=== PATIENT | female | born 1995 ===

== ENCOUNTER 2017-09-27 19:55 | Emergency (ER) | payer OTHER ==
[2017-09-27 20:35] VITALS: BMI 28.8
--- NOTE | 2017-09-27 20:42 | ED PDOC ---
HPI: General Adult Time Seen by Provider: 09/27/17 20:31 Chief Complaint (Provider): Left low back pain radiating down the left leg History Per: Patient History/Exam Limitations: no limitations Onset/Duration Of Symptoms: Days Have you had recent travel within the past 21 days to any of the following countries: [place], [place], [place] or [place]?: No Additional Complaint(s): 22 yo female presents with left lower back pain radiating down the left leg. PT states she took a test which was positive. LMP 08/23. Pt . No pelvic pain, no vaginal bleeding. PT states she did not know what to take for back pain. 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 less than 2 weeks Past Medical History Reviewed: Historical Data, Nursing Documentation, Vital Signs - Medical History PMH: No Chronic Diseases - Surgical History Surgical History: No Surg Hx - Family History Family History: States: Unknown Family Hx - Immunization History Hx Tetanus Toxoid Vaccination: No Hx Influenza Vaccination: No Hx Pneumococcal Vaccination: No - Home Medications Home Medications: Ambulatory Orders Medication Instructions Recorded Vit No.130/Iron/Folic 1 each PO DAILY #30 tablet 10/10/15 [ Vitamins] - Allergies Allergies/Adverse Reactions: Allergies Allergy/AdvReac Type Severity Reaction Status Date / Time No Known Allergies Allergy Verified 12/17/15 22:28 Review of Systems ROS Statement: Except As Marked, All Systems Reviewed And Found Negative Constitutional: Negative for: Fever, Chills Genitourinary Female: Negative for: Hematuria, Vaginal Discharge, Vaginal Bleeding, Pelvic Pain Musculoskeletal: Positive for: Back Pain Physical Exam - Reviewed Nursing Documentation Reviewed: Yes Vital Signs Reviewed: Yes - Physical Exam Appears: Positive for: Well, Non-toxic, No Acute Distress Head Exam: Positive for: ATRAUMATIC, NORMAL INSPECTION, NORMOCEPHALIC Skin: Positive for: Normal Color, Warm, DRY Eye Exam: Positive for: Normal appearance ENT: Positive for: Normal ENT Inspection Neck: Positive for: Normal, Painless ROM Cardiovascular/Chest: Positive for: Regular Rate, Rhythm Respiratory: Positive for: CNT, Normal Breath Sounds Gastrointestinal/Abdominal: Positive for: Normal Exam, Bowel Sounds, Soft. Negative for: Tenderness Back: Positive for: Normal Inspection, Other ((+) left leg raise ). Negative for: Muscle Spasm Extremity: Positive for: Normal ROM Neurologic/Psych: Positive for: Alert, Oriented Disposition - Clinical Impression Clinical Impression: Sciatica - Patient ED Disposition Is Patient to be Admitted: No - Disposition Disposition: Routine/Home Disposition Time: 20:44 Condition: STABLE Additional Instructions: Please start vitamins. Tylenol maybe taken for back pain. Instructions: Sciatica (DC)
[2017-09-27 20:48] VITALS: BP 109/66; PULSE 89; RESP 15; TEMP 97; O2SAT 100
== END 2017-09-27 21:40 | disposition home or self-care (01) ==
LOC: H.ER 19:55
DX: M54.30 Sciatica, unspecified side (principal)

== ENCOUNTER 2017-10-25 10:43 | Emergency (ER) | payer SELFPAY ==
[2017-10-25 11:05] VITALS: TEMP 97; O2SAT 99
[2017-10-25 11:06] VITALS: BMI 33.9
--- NOTE | 2017-10-25 12:20 | ED PDOC ---
HPI: Abdomen Time Seen by Provider: 10/25/17 10:50 History Per: Patient History/Exam Limitations: no limitations Additional Complaint(s): Moe is a 22 year old female (G3-P2) who is 6-8 weeks who presents to the ED complaining of lower abdominal pain and lower back pain. No urinary symptoms, fever, or bleeding. PMD: Provider TBD Past Medical History Reviewed: Historical Data, Nursing Documentation, Vital Signs Vital Signs: Last Vital Signs Temp 97 F L 10/25/17 12:40 Pulse 78 10/25/17 16:44 Resp 18 10/25/17 16:44 BP 108/66 10/25/17 16:44 Pulse Ox 99 10/25/17 16:44 - Medical History PMH: No Chronic Diseases - Surgical History Surgical History: - Family History Family History: States: Unknown Family Hx - Social History Current smoker - smoking cessation education provided: No Alcohol: None Drugs: Denies - Immunization History Hx Tetanus Toxoid Vaccination: No Hx Influenza Vaccination: No Hx Pneumococcal Vaccination: No - Home Medications Home Medications: Ambulatory Orders Medication Instructions Recorded Vit No.130/Iron/Folic 1 each PO DAILY #30 tablet 10/10/15 [ Vitamins] Nitrofurantoin Macrocrystals 100 mg PO BID #14 cap 10/25/17 [Macrobid] - Allergies Allergies/Adverse Reactions: Allergies Allergy/AdvReac Type Severity Reaction Status Date / Time No Known Allergies Allergy Verified 12/17/15 22:28 Review of Systems ROS Statement: Except As Marked, All Systems Reviewed And Found Negative Gastrointestinal: Positive for: Abdominal Pain (Lower) Musculoskeletal: Positive for: Back Pain (Lower) Physical Exam - Reviewed Nursing Documentation Reviewed: Yes Vital Signs Reviewed: Yes - Physical Exam Appears: Positive for: Well, Non-toxic Head Exam: Positive for: ATRAUMATIC, NORMAL INSPECTION, NORMOCEPHALIC Skin: Positive for: Normal Color, Warm, Dry Eye Exam: Positive for: Normal appearance, EOMI ENT: Positive for: Normal ENT Inspection Neck: Positive for: Normal Cardiovascular/Chest: Positive for: Regular Rate, Rhythm Respiratory: Positive for: Normal Breath Sounds. Negative for: Respiratory Distress Gastrointestinal/Abdominal: Positive for: Normal Exam Extremity: Positive for: Normal ROM. Negative for: Deformity Neurologic/Psych: Positive for: Alert, Oriented (x 3) - Laboratory Results Result Diagrams: 10/25/17 13:10 10/25/17 13:10 - ECG O2 Sat by Pulse Oximetry: 99 (RA) Pulse Ox Interpretation: Normal Medical Decision Making Medical Decision Making: Time: 12:08 Plan: - Beta hCG, Quantitative - CMP - CBC - OB 1st Tri and Ob Transvaginal Ultrasound US shows 12 wk 6 days fetus pt informed of results instructed to follow up w outpt housekeeping/laundry in 1-2 days tkae vitamins as well Scribe Attestation: Documented by Henry Palafox, acting as a scribe for Sandor Miranda MD Provider Scribe Attestation: All medical record entries made by the Scribe were at my direction and personally dictated by me. I have reviewed the chart and agree that the record accurately reflects my personal performance of the history, physical exam, medical decision making, and the department course for this patient. I have also personally directed, reviewed, and agree with the discharge instructions and disposition. 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
[2017-10-25 12:43] VITALS: RESP 18
[2017-10-25 13:24] LABS: BASO % 0.3 % (0.0-2.0); EOS # 0.1 K/uL (0.0-0.7); EOS % 0.9 % (0.0-4.0); HEMOGLOBIN 13.4 g/dL (12.0-16.0); LYMPH # 1.7 K/uL (1.0-4.3); LYMPH % 21.2 % (20.0-40.0); MEAN CELL VOLUME 87.3 fl (81.0-99.0); MEAN CORPUSCULAR HEMOGLOBIN 30.9 pg (27.0-31.0); MEAN CORPUSCULAR HGB CONC 35.3 g/dL (33.0-37.0); MEAN PLATELET VOLUME 8.1 fl (7.2-11.7); MONO # 0.5 K/uL (0.0-0.8); NEUT # 5.6 K/uL (1.8-7.0); NEUT % 71.6 % (50.0-75.0); RBC 4.33 Mil/uL (3.80-5.20); RED CELL DISTRIBUTION WIDTH 12.9 % (11.5-14.5); WHITE BLOOD COUNT 7.8 K/uL (4.8-10.8)
[2017-10-25 14:07] LABS: ALB/GLOB RATIO 1.1 (1.0-2.1); ALBUMIN 3.9 g/dL (3.5-5.0); ALT/SGPT 29 U/L (9-52); AST/SGOT 18 U/L (14-36); BLOOD UREA NITROGEN 7 mg/dl (7-17); CALCIUM 9.5 mg/dL (8.4-10.2); GFR AFRICAN-AMERICAN > 60; GFR NON-AFRICAN AMERICAN > 60
--- NOTE | 2017-10-25 15:06 | US ---
PROCEDURE: OB Pelvic Ultrasound HISTORY: pelvic pain LMP: 08/28/2017 COMPARISON: No relevant imaging. FINDINGS: UTERUS: Gestational sac: Single intrauterine gestation. Measures 6.8 cm. Yolk sac: Not visualized. pole: [place]-rump length measures 6.4 cm compatible with estimated gestational age of 12 weeks, 6 days Heart rate: 139 bpm. age (Ultrasound estimated): 12 weeks, 6 days Marisel-gestational hemorrhage: None. Date of delivery (Ultrasound estimated) : 05/03/2018 Uterus measures 12.9 x 9.6 x 10.6 cm. Anteverted. CERVIX: Measures 5.5 cm. Long and closed. No cervical abnormality seen. RIGHT OVARY: Measures 2.6 x 2.1 x 2.9 cm. No mass lesion. Normal flow. LEFT OVARY: Measures 2.7 x 1.5 x 1.6 cm. No solid mass. Normal flow. FREE FLUID: None. OTHER FINDINGS: None. IMPRESSION: Single intrauterine gestation with average ultrasound age of 12 weeks, 6 days. heart rate 139 beats per minute. Cervix long and closed.
[2017-10-25 16:16] LABS: SQUAMOUS EPITHIAL 9 /hpf (0-5); URINE BACTERIA OCC (<OCC); URINE BILIRUBIN NEGATIVE (NEGATIVE); URINE BLOOD NEGATIVE (NEGATIVE); URINE CLARITY CLOUDY (Clear); URINE COLOR YELLOW (YELLOW); URINE GLUCOSE (UA) NEG (Normal); URINE LEUKOCYTE ESTERASE MOD Leu/uL (Negative); URINE PROTEIN 30 mg/dL (NEGATIVE); URINE UROBILINOGEN 0.2-1.0 mg/dL (0.2-1.0)
[2017-10-25 16:46] VITALS: BP 108/66; PULSE 78
== END 2017-10-25 16:30 | disposition home or self-care (01) ==
LOC: H.ER 10:43
DX: Z34.91 Encounter for supervision of normal pregnancy, unspecified, first trimester (principal)

== ENCOUNTER 2017-11-13 18:04 | Emergency (ER) | payer SELFPAY ==
[2017-11-13 18:04] VITALS: BMI 33.9
[2017-11-13 18:15] VITALS: BP 98/67; PULSE 80; RESP 16; TEMP 98.5; O2SAT 100
[2017-11-13] MEDS ORDERED: Sodium Chloride 0.9% 1,000 ML IV STA (19:01)
--- NOTE | 2017-11-13 19:03 | ED PDOC ---
HPI: Abdomen Time Seen by Provider: 11/13/17 19:01 Chief Complaint (Nursing): Abdominal Pain Chief Complaint (Provider): ABDOMINAL PAIN History Per: Patient (22 Y/O FEMALE APPROX 15 WEEKS GESTATION HERE WITH COMPLAINT OF LOWER ABDOMINAL PAIN. DENIES ANY VAGINAL BLEEDING. DENIES ANY DYSURIA/URINARY FREQUENCY/FEVERS/CHILLS.) Past Medical History Reviewed: Historical Data, Nursing Documentation, Vital Signs Vital Signs: Last Vital Signs Temp 98.5 F 11/13/17 18:12 Pulse 80 11/13/17 18:12 Resp 16 11/13/17 18:12 BP 98/67 L 11/13/17 18:12 Pulse Ox 100 11/13/17 19:04 - Surgical History Surgical History: - Family History Family History: States: Unknown Family Hx - Immunization History Hx Tetanus Toxoid Vaccination: No Hx Influenza Vaccination: No Hx Pneumococcal Vaccination: No - Home Medications Home Medications: Ambulatory Orders Medication Instructions Recorded Vit No.130/Iron/Folic 1 each PO DAILY #30 tablet 10/10/15 [ Vitamins] Nitrofurantoin Macrocrystals 100 mg PO BID #14 cap 10/25/17 [Macrobid] - Allergies Allergies/Adverse Reactions: Allergies Allergy/AdvReac Type Severity Reaction Status Date / Time No Known Allergies Allergy Verified 12/17/15 22:28 Review of Systems ROS Statement: Except As Marked, All Systems Reviewed And Found Negative Gastrointestinal: Positive for: Abdominal Pain Physical Exam - Reviewed Nursing Documentation Reviewed: Yes Vital Signs Reviewed: Yes - Physical Exam Appears: Positive for: Well, Non-toxic, No Acute Distress Head Exam: Positive for: ATRAUMATIC, NORMAL INSPECTION, NORMOCEPHALIC Skin: Positive for: Normal Color, Warm, DRY Eye Exam: Positive for: EOMI, Normal appearance, PERRL ENT: Positive for: Normal ENT Inspection Neck: Positive for: Normal, Painless ROM Cardiovascular/Chest: Positive for: Regular Rate, Rhythm Respiratory: Positive for: CNT, Normal Breath Sounds Gastrointestinal/Abdominal: Positive for: Normal Exam, Soft, Other (GRAVID UTERUS) Back: Positive for: Normal Inspection Extremity: Positive for: Normal ROM Neurologic/Psych: Positive for: Alert, Oriented - Laboratory Results Result Diagrams: 11/13/17 19:15 11/13/17 19:15 - ECG O2 Sat by Pulse Oximetry: 100 Disposition - Clinical Impression Clinical Impression: Abdominal pain during - Patient ED Disposition Is Patient to be Admitted: Transfer of Care - Disposition Disposition: Transfer of Care Disposition Time: 20:00 Condition: FAIR Forms: [employer] (Tamazight) Patient Signed Over To: Bro Jimenez Handoff Comments: PENDING US PELVIC/LABWORK/UA
[2017-11-13 19:28] LABS: BASO % 0.6 % (0.0-2.0); EOS # 0.1 K/uL (0.0-0.7); EOS % 1.5 % (0.0-4.0); HEMOGLOBIN 12.8 g/dL (12.0-16.0); LYMPH # 1.7 K/uL (1.0-4.3); LYMPH % 21.3 % (20.0-40.0); MEAN CELL VOLUME 87.8 fl (81.0-99.0); MEAN CORPUSCULAR HEMOGLOBIN 30.7 pg (27.0-31.0); MEAN CORPUSCULAR HGB CONC 34.9 g/dL (33.0-37.0); MONO # 0.5 K/uL (0.0-0.8); MONO % 6.6 % (0.0-10.0); NEUT # 5.6 K/uL (1.8-7.0); NRBC % 0.1 % (0.0-0.0); RBC 4.19 Mil/uL (3.80-5.20); RED CELL DISTRIBUTION WIDTH 13.2 % (11.5-14.5)
[2017-11-13 19:36] LABS: SQUAMOUS EPITHIAL 5 /hpf (0-5); URINE BACTERIA RARE (<OCC); URINE BILIRUBIN NEGATIVE (NEGATIVE); URINE BLOOD NEGATIVE (NEGATIVE); URINE CLARITY CLOUDY (Clear); URINE COLOR YELLOW (YELLOW); URINE GLUCOSE (UA) NEG (Normal); URINE HYALINE CAST 0-2 /hpf (0-2); URINE LEUKOCYTE ESTERASE MOD Leu/uL (Negative); URINE PROTEIN NEGATIVE (NEGATIVE); URINE UROBILINOGEN 0.2-1.0 mg/dL (0.2-1.0)
[2017-11-13 19:41] LABS: BLOOD UREA NITROGEN 8 mg/dl (7-17); CALCIUM 9.7 mg/dL (8.4-10.2); GFR AFRICAN-AMERICAN > 60; GFR NON-AFRICAN AMERICAN > 60
--- NOTE | 2017-11-13 21:51 | ED PDOC ---
- Laboratory Results Result Diagrams: 11/13/17 19:15 11/13/17 19:15 Urine POC: Positive Urine dip results: Positive for: Blood. Negative for: Leukocyte Esterase, Nitrate, Ketones, Glucose, Bilirubin, Protein - ECG O2 Sat by Pulse Oximetry: 100 Medical Decision Making Medical Decision Making: U/S results consistent with a normal : cervix is closed, r and l adenexa without lesion; FHR (+) Pt will be discharged with instructions to follow up with OB in morning Disposition Doctor Will See Patient In The: Office Counseled Patient/Family Regarding: Diagnosis, Need For Followup - Clinical Impression Clinical Impression: Abdominal pain during , Abdominal discomfort, Pyelonephritis - POA Present On Arrival: None - Disposition Disposition: Routine/Home Disposition Time: 22:05 Condition: FAIR Additional Instructions: You should follow up with your OB in morning Instructions: How to Adapt to Physical Changes During , - The Third Month Forms: [employer] (Vietnamese)
--- NOTE | 2017-11-14 09:39 | US ---
PROCEDURE: OB Pelvic Ultrasound HISTORY: THREATENED MISCARRIAGE LMP: 08/20/2017. Prior obstetric ultrasound 10/25/2017 indicating single viable IUP with average ultrasound age 12 weeks 6 days. COMPARISON: Obstetric ultrasound 10/25/2017. FINDINGS: UTERUS: Gestational sac: A single viable intrauterine gestation identified with average pelvic age of 15 weeks 5 days which is concordant with prior ultrasonography from 10/25/2017 (including standard deviation). Heart rate: 143 bpm. Marisel-gestational hemorrhage: No placental abruption or previa with a posterior fundal placenta identified at this time. Date of delivery (Ultrasound estimated) : 05/02/2018. Uterus myometrium age grossly nonfocal. CERVIX: Measures 4.0 cm. Long and closed. No cervical abnormality seen. RIGHT OVARY: Not clearly identified in this examination with no interval suspicious right adnexal finding appreciated at this time. LEFT OVARY: Not clearly identified in this examination with no interval suspicious right adnexal finding appreciated at this time. FREE FLUID: None. OTHER FINDINGS: None. IMPRESSION: A single viable intrauterine gestation identified with average ultrasonic age of 15 weeks 5 days, concordant with prior ultrasonography 10/25/2016. No definite pattern of placental abruption or previa at this time. Neither ovary is identified however no suspicious adnexal findings are appreciated bilaterally grossly. Concordant preliminary report from [facility], 11/13/2017.
== END 2017-11-13 23:49 | disposition home or self-care (01) ==
LOC: H.ER 18:04
DX: O26.899 Other specified pregnancy related conditions, unspecified trimester (principal)

== ENCOUNTER 2018-02-10 23:38 | Inpatient (IN) | payer SELFPAY ==
[2018-02-11 01:29] VITALS: BMI 35.5
[2018-02-11] MEDS: Lactated Ringer's 1,000 ML IV SCH ×2 (01:30→02:50)
[2018-02-11 02:09] LABS: BASO % 0.4 % (0.0-2.0); EOS # 0.2 K/uL (0.0-0.7); EOS % 2.8 % (0.0-4.0); HEMOGLOBIN 12.1 g/dL (12.0-16.0); LYMPH # 2.2 K/uL (1.0-4.3); LYMPH % 29.6 % (20.0-40.0); MEAN CELL VOLUME 92.3 fl (81.0-99.0); MEAN CORPUSCULAR HEMOGLOBIN 31.3 pg (27.0-31.0); MEAN CORPUSCULAR HGB CONC 33.9 g/dL (33.0-37.0); MONO # 0.7 K/uL (0.0-0.8); MONO % 9.2 % (0.0-10.0); NEUT # 4.2 K/uL (1.8-7.0); NRBC % 0.1 % (0.0-0.0); RBC 3.87 Mil/uL (3.80-5.20); RED CELL DISTRIBUTION WIDTH 13.6 % (11.5-14.5); WHITE BLOOD COUNT 7.3 K/uL (4.8-10.8)
[2018-02-11 02:40] LABS: SQUAMOUS EPITHIAL 16 /hpf (0-5); URINE BACTERIA OCC (<OCC); URINE BILIRUBIN NEGATIVE (NEGATIVE); URINE BLOOD NEGATIVE (NEGATIVE); URINE CLARITY CLOUDY (Clear); URINE COLOR YELLOW (YELLOW); URINE GLUCOSE (UA) NEG (Normal); URINE HYALINE CAST 0-2 /hpf (0-2); URINE LEUKOCYTE ESTERASE LARGE Leu/uL (Negative); URINE PROTEIN NEGATIVE (NEGATIVE); URINE UROBILINOGEN 0.2-1.0 mg/dL (0.2-1.0)
[2018-02-11 03:27] LABS: SPECIMEN COMMENT Clear
--- NOTE | 2018-02-11 06:44 | OBHP ---
Datetime: 02/11/2018 01:58 IP Adm Impression: , intrauterine ; No Active Labor; Intact Membranes IP Admit Plan: Observation/Evaluation Admit Comment, IP Provider: Pt is a 22 y/o female with IUP 28.3 wks presenting to [facility] with com plaints of low back pain and dysuria. States that she has been having non radiating low back pain, 2/ 10, cramping x4 days. Reports 1 day of dysuria. Denies fever, chills, flank pain, vaginal discharge o r pruritis. Denies vb, lof. +FM. Last sexual activity 3 weeks ago. PNC: [facility]. Was treated twice for chlamidya (first TREVA +, second TREVA negative on 01/31). FOB receive d tx to as per pt. Circumvallete placenta noted on last U/S (01/19), seen by MFM. + UTI in 1st trimest er, treated, TREVA negative. OBHx: 2 prior , full term, no complications PMHX: denies Meds: PNV Allergies: NKDA Social: Denies habits x3 PE: VSS, afebrile General: appears comfortable Cardio: RRR, no murmurs Pulm: CTABL Abdomen: Gravid, tender to palpation in suprapubic region Back: Low rover tender to palpation. No CVA tenderness. Neurological: Motor and sensory of LE intact Ext: No edema, dorsal pedal pulses +2 Speculum: no pooling, minimal white discharge, no foul odor, cervix appears closed FHR 144, reactive, no decels A: IUP 28.3 weeks with dysuria and low back pain. FHR reassuring P: U/A, CBC, FFN. 2 L LR fluids. Tylenol 650mg x1. F/U labs Discussed case with Dr. Lance Taylor PGY2_ OB Hospitalist on-call. With PGY2, I saw and examined this patient. Agree with note. MAHNDO Extremities - PN: Normal Abdomen - PN: Normal Back - PN: Abnormal Lungs - PN: Normal Heart - PN: Normal Neurologic - PN: Normal General - PN: Normal Membranes, Provider: Intact Pool Provider: Negative IP Hx Assessment: The History has been Reviewed and is Current EGA AdmitDate IP: 28.3 Vital Signs Provider: Reviewed IP Chief Complaint: Signs/symptoms UTI; Other FHR Category Provider Fetus A: Category I NICHD Decel Fetus A IP Provider: None Dilatation, Provider: 0 Genitourinary Exam: Normal
--- NOTE | 2018-02-11 07:28 | OBADHP ---
Datetime: 02/11/2018 01:58 Admit Comment, IP Provider: Pt is a 22 y/o female with IUP 28.3 wks presenting to [facility] with com plaints of low back pain and dysuria. States that she has been having non radiating low back pain, 2/ 10, cramping x4 days. Reports 1 day of dysuria. Denies fever, chills, flank pain, vaginal discharge o r pruritis. Denies vb, lof. +FM. Last sexual activity 3 weeks ago. PNC: CFH. Was treated twice for chlamidya (first TREVA +, second TREVA negative on 01/31). FOB receive d tx to as per pt. Circumvallete placenta noted on last U/S (01/19), seen by MFM. + UTI in 1st trimest er, treated, TREVA negative. 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 No CVA tenderness. Neurological: Motor and sensory of LE intact Ext: No edema, dorsal pedal pulses +2 Speculum: no pooling, minimal white discharge, no foul odor, cervix appears closed FHR 144, reactive, no decels A: IUP 28.3 weeks with dysuria and low back pain. FHR reassuring P: U/A, CBC, FFN. 2 L LR fluids. Tylenol 650mg x1. F/U labs Discussed case with Dr. Lance Taylor PGY2_ OB Hospitalist on-call. With PGY2, I saw and examined this patient. Agree with note. MILLIE Addenedum: UA + urine culture ordered...will admit fro pyelonephritis IV Ab...pt understands condi tion and treatment plans Extremities - PN: Normal Abdomen - PN: Normal Back - PN: Abnormal Lungs - PN: Normal Heart - PN: Normal Neurologic - PN: Normal General - PN: Normal Membranes, Provider: Intact Pool Provider: Negative IP Hx Assessment: The History has been Reviewed and is Current Vital Signs Provider: Reviewed IP Chief Complaint: Signs/symptoms UTI; Other FHR Category Provider Fetus A: Category I NICHD Decel Fetus A IP Provider: None Dilatation, Provider: 0 Genitourinary Exam: Normal EGA AdmitDate IP: 28.3 IP Adm Impression: , intrauterine ; No Active Labor; Intact Membranes IP Admit Plan: Observation/Evaluation
[2018-02-12 15:42] VITALS: BP 113/67; PULSE 79; RESP 18; TEMP 98.4
--- NOTE | 2018-02-12 20:11 | OBPN ---
Datetime: 02/12/2018 09:36 IP Progress Plan: Continue present management; Discharge Datetime: 02/11/2018 16:17 IP Progress Impression Other: Pyelo IP Progress Impression: Reassuring heart rate Pool Provider: Negative Contraction Comments Provider: none IP Progress Note Comment: S: 22 yo . Seen and examined at bedside.Pt reports mild LBP R>L co ntrolled and has improved since last night with Tylenol and antibiotics. She also states some radiati on of the pain to the R and L lower quadrants. Patient still has dysuria and increased frequency slig htly improved since admission denies hematuria. Tolerating PO diet well. Denies fever/chills, diarrhe a, constipation, nausea/vomiting, CP/SOB , Lightheadedness, calf pain. O: Temp 98.2F Remains Afebrile, BP126/65 HR 88 Labs: Large LES, Pyuria, Nitrate negative Meds:Ceftriaxone 1gm IVPB Daily Tylenol 650mg PO QD PHYSICAL EXAM: GEN: A_O, sititng up in bed, NAD HEENT: White sclera, pink conjunctiva, oral mucosa moist. LUNGS: CTA B/L, no wheezing ,rhonchi, or rales CVS: RRR, S1,S2,no murmurs rubs gallops ABD: ND, +BS, Tender on palpation of B/L lower quadrant, (- )Rovings sign, (-)pain at [place] po int EXT: 1+ pitting edema, negative Erick's sign, calves nontender NEURO/PSYCHI: AAOx3, no grossly focal deficit, preserved affect and mood. Assessment: 22 yo admitted for pyelonephritis. Pt remains afebrile, tolerating pain with medication, dysuria with increased frequency denies hematuria , appetite is good. Daily NST- reassuring, no contr actions P: 1.Monitor and observe heart tracings- Daily NST 2.Continue ceftriaxone IVPB daily , Tylenol for pain, hydrate as needed 3.Follow vital signs 4.If pt afebrile 24hr may D/C home with antibiotics Mary Beth MARCH PGY-1 Reviewed and discussed with Dr. Zamora Attending Note: Patient was seen and discussed with the resident and I agree with the above. Vital Signs Provider: Reviewed; Within Normal Limits Dilatation, Provider: 0 Datetime: 02/11/2018 01:58 Membranes, Provider: Intact FHR Category Provider Fetus A: Category I NICHD Decel Fetus A IP Provider: None
--- NOTE | 2018-02-12 20:16 | OBPN ---
Datetime: 02/12/2018 09:36 IP Progress Note Comment: 22 yo at 28+ weeks gestational age. Pt was seen/examined at [facility] this morning. States she feels much better today - dysuria improved significantly, as well as the b ack pain. No hematuria. Tolerating PO diet well. Feels baby moving well; no vaginal bleeding or leaki ng of fluid, no contractions. Denies fever/chills, chest pain, dyspnea, GI upset, leg/calf pain. Temp 98.24; remains afebrile since admission, BP 113/67, HR 88 Urinalysis on admission: Large leukocyte esterase, pyuria, nitrate negative Meds: has received ceftriaxone 1gm IVPB Tylenol 650mg PO QD Urine sent and culture pending. PE: GEN: no acute distresss Resp: clear to auscultation bilaterally, normal effort CV: RRR, S1,S2 Abs ND, +BS, mild suprapubic tenderness Back: no CVA tenderness on left side ; on R side slight, but pt states much improved EXT: calves nontender, 1+ edema NEURO/PSYCHI: no gross focal deficit, preserved affect and mood. Assessment: 22 yo admitted for UTI/pyelonephritis. She has remained afebrile since admission, and sym ptoms have been significantly relieved with use of antibiotics and tylenol. Has had daily NST - reas suring, no contractions. P: Plan for d/c home today with PO antibiotics- macrobid 100 mg BID x 10 days. Follow up in [facility] in 1 week. F/u urine cx. [email or web address] Attending Note: Patient was seen and examined with resident and I agree with the above.
== END 2018-02-12 11:06 | disposition home or self-care (01) | DRG 886 ==
LOC: H.EROB2 23:38 → H.L&D 02-11 03:14 → H.OB/GYN 02-11 04:02
PROVIDERS: ADMIT Obstetrics & Gynecology; ATTEND Obstetrics & Gynecology
PROC: 4A1HXCZ Monitoring of Products of Conception, Cardiac Rate, External Approach (ICD-10-PCS; principal; 2018-02-11)
DX: O23.03 Infections of kidney in pregnancy, third trimester (principal); N12 Tubulo-interstitial nephritis, not specified as acute or chronic; Z3A.28 28 weeks gestation of pregnancy

== ENCOUNTER 2018-04-18 21:03 | Emergency (ER) | payer SELFPAY ==
[2018-04-18 21:51] VITALS: BMI 41.9
[2018-04-19 02:32] VITALS: BP 120/62; PULSE 97; RESP 18; TEMP 98.5; O2SAT 99
--- NOTE | 2018-04-19 08:44 | OBDCSUM ---
Datetime: 04/18/2018 22:15 Discharged to, Provider: Home Follow up at, Provider: [facility] Disch Instr Activity: Normal activity Disch Instr Diet: Regular Discharge Diagnosis, Provider: False Labor - Undelivered Discharge Time: 04/18/2018 22:15 Follow up in weeks, Provider: Scheduled appointment Tuesday04/25/18 Disch Referrals: None
== END 2018-04-18 22:25 | disposition home or self-care (01) ==
LOC: H.EROB2 21:03
DX: O47.1 False labor at or after 37 completed weeks of gestation (principal); Z3A.37 37 weeks gestation of pregnancy; O26.93 Pregnancy related conditions, unspecified, third trimester; R10.2 Pelvic and perineal pain

== ENCOUNTER 2018-04-28 11:07 | Emergency (ER) | payer SELFPAY ==
[2018-04-28 19:10] VITALS: BP 105/52; PULSE 115
== END 2018-04-28 11:25 | disposition home or self-care (01) ==
LOC: H.EROB2 11:07 → H.L&D 11:25
DX: O26.93 Pregnancy related conditions, unspecified, third trimester (principal); R30.0 Dysuria; Z3A.37 37 weeks gestation of pregnancy

== ENCOUNTER 2018-05-03 11:14 | Inpatient (IN) | payer MEDICAID, SELFPAY ==
[2018-05-03] MEDS ORDERED: OXYTOCIN/0.9 % NS 20 UNIT/1,000 ML BAG IV SCH (12:15)
[2018-05-03] MEDS ORDERED: Oxytocin 30 UNIT 30 UNITS/500 ML BAG IV ONE (12:30)
[2018-05-03 13:29] LABS: BASO % 0.3 % (0.0-2.0); EOS # 0.1 K/uL (0.0-0.7); EOS % 1.3 % (0.0-4.0); HEMOGLOBIN 12.3 g/dL (12.0-16.0); LYMPH # 1.6 K/uL (1.0-4.3); LYMPH % 27.9 % (20.0-40.0); MEAN CELL VOLUME 86.6 fl (81.0-99.0); MEAN CORPUSCULAR HEMOGLOBIN 29.9 pg (27.0-31.0); MEAN CORPUSCULAR HGB CONC 34.5 g/dL (33.0-37.0); MEAN PLATELET VOLUME 9.1 fl (7.2-11.7); MONO # 0.4 K/uL (0.0-0.8); MONO % 6.2 % (0.0-10.0); NEUT # 3.8 K/uL (1.8-7.0); NEUT % 64.3 % (50.0-75.0); NRBC % 0.1 % (0.0-0.0); RBC 4.12 Mil/uL (3.80-5.20); RED CELL DISTRIBUTION WIDTH 12.8 % (11.5-14.5); WHITE BLOOD COUNT 5.9 K/uL (4.8-10.8)
--- NOTE | 2018-05-03 16:50 | OBHP ---
Datetime: 05/03/2018 12:27 IP Adm Impression: Term, intrauterine IP Admit Plan: Admit to unit Admit Comment, IP Provider: 22 yo f @ 40 weeks (based on 1st trimester ultrasound performed at outside facility) presents for Induction of labor from [facility]- Dr. Jones. She denies vaginal bleeding but reports she has had loss of fluid the past 2 days. States she has contractions and reports good movement. Her last visit was today with Dr. Jones who examined her and sent her over for induction of labor due to Circumvalate placenta and chorioangioma. Last u/s: 02/16/18 demonstrates posterior placenta and cephalic presentation. Labs: ABO: O+ Antibody: Negative GBS: Negative GC/ CL: Negative HBsAg: Negative HIV: Negative RPR: negative Physical exam: Patient is in no acute distress. Heart: S1 and S2. No murmurs, gallops and rubs. Lungs: Clear breath sounds bilaterally. Abdomen: Gravid abdomen, Soft, nontender Vaginal Exam: Dr. Randolph present as community administrator. Cervix is closed. Bedside ultrasound performed- Cephalic presentation. Assessment: 22 yo f @ 40 weeks ([facility] presents for Induction of labor from [facility]- Dr. Jones. Plan: - Admit for induction of labor - heart monitoring - Continue to monitor Case discussed with Dr. Strong ---Karen Cole, PGY-1 Family Medicine The patient was seen with the resident I agree with the note Pelvic Type - PN: Adequate Extremities - PN: Not Done Abdomen - PN: Normal Back - PN: Normal Breast - PN: Not Done Lungs - PN: Normal Heart - PN: Normal Thyroid - PN: Not Done Neurologic - PN: Not Done HEENT - PN: Normal General - PN: Normal FHR - Baseline A Provider: 140 EGA AdmitDate IP: 40.0 Vital Signs Provider: Within Normal Limits IP Chief Complaint: Scheduled induction of labor NICHD Variability Prov Fetus A: Moderate 6-25bpm NICHD Accel Fetus A IP Provider: [id number] FHR Category Provider Fetus A: Category I NICHD Decel Fetus A IP Provider: None Dilatation, Provider: closed Genitourinary Exam: Normal DTRs - PN: Not Done Datetime: 04/18/2018 22:17 Presentation-Admit: Vertex Membranes, Provider: Intact Contraction Comments Provider: None Comments, ACOG Physical Exam: General: Well, NAD Chest: RRR, S1S2 present Lungs: CTA B/L Abdomen: gravid, Mild tenderness, No guarding Ext: Trace pedal edema SSE: Scent pale yellowish dischargem No active vaginal bleeding SVE: Fingertip/thick/-2 IP Hx Assessment: The History has been Reviewed and is Current Effacement, Provider: thick Station, Provider: -2 Datetime: 02/11/2018 16:17 Pool Provider: Negative
[2018-05-03 19:35] VITALS: BMI 36.0
[2018-05-04] MEDS ORDERED: Fentanyl/Bupivacaine HCl 250 ML EPI ONE (00:15)
[2018-05-04] MEDS ORDERED: Lactated Ringer's 1,000 ML IV SCH ×3 (00:30→00:45)
[2018-05-04] MEDS ORDERED: Oxytocin 30 UNIT 30 UNITS/500 ML BAG IV ONE ×2 (08:09→08:10)
[2018-05-04] MEDS ORDERED: Lidocaine 2% MPF (5 ml) Inj ONE (16:26)
[2018-05-04] MEDS ORDERED: Benzocaine/Menthol SPRAY TOP PRN ×3 (16:40→17:24)
[2018-05-05 06:22] LABS: BASO % 0.3 % (0.0-2.0); EOS # 0.2 K/uL (0.0-0.7); EOS % 2.7 % (0.0-4.0); HEMOGLOBIN 10.7 g/dL (12.0-16.0); LYMPH # 2.7 K/uL (1.0-4.3); LYMPH % 32.2 % (20.0-40.0); MEAN CELL VOLUME 86.8 fl (81.0-99.0); MEAN CORPUSCULAR HEMOGLOBIN 29.8 pg (27.0-31.0); MEAN CORPUSCULAR HGB CONC 34.3 g/dL (33.0-37.0); MEAN PLATELET VOLUME 8.6 fl (7.2-11.7); MONO # 0.6 K/uL (0.0-0.8); MONO % 7.7 % (0.0-10.0); NEUT # 4.8 K/uL (1.8-7.0); NEUT % 57.1 % (50.0-75.0); NRBC % 0.1 % (0.0-0.0); RBC 3.61 Mil/uL (3.80-5.20); RED CELL DISTRIBUTION WIDTH 12.9 % (11.5-14.5); WHITE BLOOD COUNT 8.4 K/uL (4.8-10.8)
--- NOTE | 2018-05-05 08:37 | OBDS ---
DELIVERY PERSONNEL Delivery Doctor: Spring Frankel MD Mechanical Engineering Manager: Jenae Boucher RN Anesthesiologist: Senthil Farooq MD Resident: Karen Strauss MATERNAL INFORMATION Delivery Anesthesia: Local; Epidural Medications in Delivery: pitocin Estimated Blood Loss (ml): 150 Placenta Cultured: No Maternal Complications: None Provider Comments: Normal spontaneous vaginal delivery. Patient delivered viable female with Apgars of 9 and 9 at one and 5 minutes respectively. P lacenta delivered spontaneously. Laceration repaired, as above. Uterus firm and appropriately hemosta tic following delivery. Patient tolerated delivery and repair well. No complications. Estimated blood loss 300 mL. LABOR SUMMARY EDC: 05/03/2018 00:00 No. Babies in Womb: 1 Attempted: No Labor Anesthesia: Epidural LABOR INFORMATION Reason for Induction: Other Reason for Induction Other: Chorioangioma and circumvillae placenta Onset of Labor: 05/04/2018 13:56 Complete Dilatation: 05/04/2018 16:10 Cervical Ripening Agents: Cervidil Oxytocin: Induction Group B Beta Strep: Negative Steroids Given: None Reason Steroids Not Administered: Not Applicable MEMBRANES Membranes Rupture Method: Artificial Rupture of Membranes: 05/04/2018 16:18 Length of Rupture (hrs): 0.12 Amniotic Fluid Color: Clear Amniotic Fluid Amount: Moderate Amniotic Fluid Odor: None STAGES OF LABOR Stage 1 hrs: 2 Stage 1 min: 14 Stage 2 hrs: 0 Stage 2 min: 15 Stage 3 hrs: 0 Stage 3 min: 4 Total Time in Labor hrs: 2 Total Time in Labor min: 33 VAGINAL DELIVERY Episiotomy: Median Laceration Extension: First Degree Laceration Type: Perineal Laceration Repair: Yes Laceration Repair Note: Bilateral first-degree lateral vaginal lacerations. Area was infiltrated wit h 1% lidocaine. Lacerations repaired with 2-0 repeat without complication. Initial Vag Sponge Count: 5 Final Vag Sponge Count: 5 Initial Vag Sharps Count: 3 Final Vag Sharps Count: 3 Sponge Count Correct: Yes Sharps Count Correct: Yes BABY A INFORMATION Infant Delivery Date/Time: 05/04/2018 16:25 Method of Delivery: Vaginal Born in Route : No : N/A Forceps: N/A Vacuum Extraction: N/A Shoulder Dystocia : No SHOULDER DYSTOCIA BABY A Infant Delivery Date/Time: 05/04/2018 16:25 PRESENTATION/POSITION BABY A Presentation: Cephalic Cephalic Presentation: Vertex Vertex Position: Left Occipital Anterior Breech Presentation: N/A PLACENTA INFORMATION BABY A Placenta Delivery Time : 05/04/2018 16:29 Placenta Method of Delivery: Spontaneous Placenta Status: Delivered SCORES BABY A Heart Rate 1 min: >100 bpm Resp Effort 1 min: Good Cry Reflex Irritability 1 min: Cough or Sneeze or Pulls Away Muscle Tone 1 min: Active Motion Color 1 min: Body [place], Extremities Blue Resuscitation Effort 1 min: N/A SCORE 1 MIN: 9 Heart Rate 5 min: >100 bpm Resp Effort 5 min: Good Cry Reflex Irritability 5 min: Cough or Sneeze or Pulls Away Muscle Tone 5 min: Active Motion Color 5 min: Body [place], Extremities Blue Resuscitation Effort 5 min: N/A SCORE 5 MIN: 9 INFANT INFORMATION BABY A Gestational Age at Delivery: 40.1 Gestational Status: Term Infant Outcome : Liveborn Infant Condition : Stable Infant Sex: Female IDENTIFICATION/MEDS BABY A ID Band Number: [id number] ID Band Location: Left Leg; Left Arm WEIGHT/LENGTH BABY A Birthweight (gms): 3370 Infant Weight (lb): 7 Weight (oz): 7 CORD INFORMATION BABY A No. Cord Vessels: 3 Nuchal Cord : Around Neck x1, Loose Cord Blood Taken: N/A Infant Suction: None
--- NOTE | 2018-05-05 08:41 | OBDS ---
DELIVERY PERSONNEL Delivery Doctor: Spring Frankel MD Manager Civil: Jenae Boucher RN Anesthesiologist: Senthil Farooq MD Resident: Karen Strauss MATERNAL INFORMATION Delivery Anesthesia: Local; Epidural Medications in Delivery: pitocin Estimated Blood Loss (ml): 150 Placenta Cultured: No Maternal Complications: None Provider Comments: Normal spontaneous vaginal delivery. Patient delivered viable female with Apgars of 9 and 9 at one and 5 minutes respectively. P lacenta delivered spontaneously. Laceration repaired, as above. Uterus firm and appropriately hemosta tic following delivery. Patient tolerated delivery and repair well. No complications. Estimated blood loss 300 mL. LABOR SUMMARY EDC: 05/03/2018 00:00 EDC: 05/03/2018 00:00 EDC: 05/03/2018 00:00 No. Babies in Womb: 1 Attempted: No Labor Anesthesia: Epidural LABOR INFORMATION Reason for Induction: Other Reason for Induction Other: Chorioangioma and circumvillae placenta Onset of Labor: 05/04/2018 13:56 Complete Dilatation: 05/04/2018 16:10 Cervical Ripening Agents: Cervidil Cervical Ripening Agents: Cervidil Cervical Ripening Agents: hold next dose of cytotec as per Dr. Randolph. Oxytocin: Induction Group B Beta Strep: Negative Group B Beta Strep: Negative Steroids Given: None Reason Steroids Not Administered: Not Applicable MEMBRANES Membranes Rupture Method: Artificial Membranes Rupture Method: Artificial Rupture of Membranes: 05/04/2018 16:18 Length of Rupture (hrs): 0.12 Amniotic Fluid Color: Clear Amniotic Fluid Color: Clear Amniotic Fluid Amount: Moderate Amniotic Fluid Amount: Moderate Amniotic Fluid Odor: None STAGES OF LABOR Stage 1 hrs: 2 Stage 1 min: 14 Stage 2 hrs: 0 Stage 2 min: 15 Stage 3 hrs: 0 Stage 3 min: 4 Total Time in Labor hrs: 2 Total Time in Labor min: 33 VAGINAL DELIVERY Episiotomy: Median Laceration Extension: First Degree Laceration Type: Perineal Laceration Repair: Yes Laceration Repair Note: Bilateral first-degree lateral vaginal lacerations. Area was infiltrated wit h 1% lidocaine. Lacerations repaired with 2-0 repeat without complication. Initial Vag Sponge Count: 5 Final Vag Sponge Count: 5 Initial Vag Sharps Count: 3 Final Vag Sharps Count: 3 Sponge Count Correct: Yes Sharps Count Correct: Yes BABY A INFORMATION Infant Delivery Date/Time: 05/04/2018 16:25 Method of Delivery: Vaginal Born in Route : No : N/A Forceps: N/A Vacuum Extraction: N/A Shoulder Dystocia : No SHOULDER DYSTOCIA BABY A Delivery Date/Time: 05/04/2018 16:25 PRESENTATION/POSITION BABY A Presentation: Cephalic Cephalic Presentation: Vertex Vertex Position: Left Occipital Anterior Breech Presentation: N/A PLACENTA INFORMATION BABY A Placenta Delivery Time : 05/04/2018 16:29 Placenta Method of Delivery: Spontaneous Placenta Status: Delivered SCORES BABY A Heart Rate 1 min: >100 bpm Resp Effort 1 min: Good Cry Reflex Irritability 1 min: Cough or Sneeze or Pulls Away Muscle Tone 1 min: Active Motion Color 1 min: Body [place], Extremities Blue Resuscitation Effort 1 min: N/A SCORE 1 MIN: 9 Heart Rate 5 min: >100 bpm Resp Effort 5 min: Good Cry Reflex Irritability 5 min: Cough or Sneeze or Pulls Away Muscle Tone 5 min: Active Motion Color 5 min: Body [place], Extremities Blue Resuscitation Effort 5 min: N/A SCORE 5 MIN: 9 INFANT INFORMATION BABY A Gestational Age at Delivery: 40.1 Gestational Status: Term Outcome : Liveborn Condition : Stable Sex: Female IDENTIFICATION/MEDS BABY A ID Band Number: [id number] ID Band Location: Left Leg; Left Arm WEIGHT/LENGTH BABY A Birthweight (gms): 3370 Infant Weight (lb): 7 Infant Weight (oz): 7 CORD INFORMATION BABY A No. Cord Vessels: 3 Nuchal Cord : Around Neck x1, Loose Cord Blood Taken: N/A Infant Suction: None
--- NOTE | 2018-05-05 09:55 | OBPPN ---
Datetime: 05/05/2018 05:51 PP Pain Prov: Within normal limits PP Nausea Prov: Denies PP Flatus Prov: Yes PP BM Prov: No PP Breasts Prov: Not Done PP Heart Prov: Normal PP Lungs Prov: Normal PP Abdomen/Uterus Prov: Normal PP Lochia Prov: Normal PP Vulva/Perineum Prov: Not Done PP CVA Tenderness Prov: Not Done PP Extremities Prov: Normal PP C/S Incision Prov: Not Applicable PP Progress Prov: Normal PP Comments Phys Exam Prov: PPD#1 S: 22 yo . Seen and examined at bedside. No acute events overnight. Pt reports mild pelvic pain controlled with pain meds. OOB/Ambulation well without dizziness. Breast and bottle feeding with out difficulty. Tolerating PO diet well. Lochia is similar to menses volume. Voiding freely, no bowel movement but passing gas per rectum. Denies fever/chills, diarrhea, nausea/vomiting, CP/SOB , lighth eadedness, calf pain. O: BP: 120/74, HR: 71, T:98.4F blood type: O+, Ab neg rubella: immune PHYSICAL EXAM: GEN: A_O, Resting comfortably in bed, NAD HEENT: White sclera, pink conjunctiva, oral mucosa moist. Breast: Engorged/non-tender/no lesions LUNGS: CTA B/L, no wheezing ,rhonchi, or rales CVS: RRR, S1,S2 NL ABD: ND, +BS, firm fundus @ umbilical level. Soft, appropriate TTP EXT: No edema, calves non-tender NEURO/PSYCHI: AAOx3, no grossly focal deficit, preserved affect and mood. Assessment: 22yo s/p #3 on 05/04/18 @ 16:25. Patient afebrile, tolerating pain with medication, t olerating oral intake, adequate urine output. Patient is doing well. Plan: Regular diet OOB with caution Ibuprofen 600 mg 1 tab q/ 6 hrs po if mild pain. Encourage and ambulation Colace 100mg PO BID for constipation Disposition: anticipate discharge to home 05/06/18 with oob/ambulatory precaution -F/U in 6 weeks post- Case discussed with Dr. Frankel ---Leila Pace MD PGY1 [facility] Family Medicine PP Impression Prov: Normal progression PP Plan Prov: Continue present management PP Progress Note Prov: Attending addendum: I saw and examined the patient at bedside this morning. I reviewed the resident note above and agr ee with findings and managemet. Anticipate DC home tomorrow. f/u appt w/. Dr. Jones in 4-6wks IUD for pp contraception. IP PP Procedures: None Vital Signs Provider PP: Reviewed; Within Normal Limits
[2018-05-06] MEDS ORDERED: Influenza Vaccine (5 YR UP)/PF 60 MCG/0.5 ML SYR IM ONE ×2 (06:03→10:00)
[2018-05-06 18:27] VITALS: BP 141/62; PULSE 80; RESP 20; TEMP 98; O2SAT 98
== END 2018-05-06 11:45 | disposition home or self-care (01) | DRG 807 ==
LOC: H.EROB2 11:14 → H.L&D 12:05 → H.OB/GYN 05-04 19:00
PROVIDERS: ADMIT Obstetrics & Gynecology Gynecology; ATTEND Obstetrics & Gynecology Gynecology
PROC: 4A1HXCZ Monitoring of Products of Conception, Cardiac Rate, External Approach (ICD-10-PCS; 2018-05-03)
PROC: 0HQ9XZZ Repair Perineum Skin, External Approach (ICD-10-PCS; principal; 2018-05-04)
PROC: 10E0XZZ Delivery of Products of Conception, External Approach (ICD-10-PCS; 2018-05-04)
DX: O69.81X0 Labor and delivery complicated by cord around neck, without compression, not applicable or unspecified (principal); Z37.0 Single live birth; O70.0 First degree perineal laceration during delivery; Z3A.40 40 weeks gestation of pregnancy; D26.7 Other benign neoplasm of other parts of uterus